=== PATIENT | female | born 1960 | race Two or more races ===

== ENCOUNTER → 2017-10-17 | Outpatient (CLI) | payer OTHER | END | disposition home or self-care (01) | LOC: MAMO-SONO 09:00 | DX: N63.11 Unspecified lump in the right breast, upper outer quadrant (principal); N63.12 Unspecified lump in the right breast, upper inner quadrant; Z12.31 Encounter for screening mammogram for malignant neoplasm of breast; N94.0 Mittelschmerz; R10.2 Pelvic and perineal pain; N94.89 Other specified conditions associated with female genital organs and menstrual cycle; N64.59 Other signs and symptoms in breast; N64.89 Other specified disorders of breast ==

== ENCOUNTER 2018-02-27 09:22 | Outpatient (CLI) | payer OTHER | END 2018-02-27 09:38 | disposition home or self-care (01) | LOC: RAD 09:22 | DX: M19.011 Primary osteoarthritis, right shoulder (principal) ==

== ENCOUNTER 2018-05-07 11:43 | Outpatient (CLI) | payer OTHER | END 2018-05-07 17:00 | disposition home or self-care (01) | LOC: SONOGRAMA 11:43 | DX: M65.811 Other synovitis and tenosynovitis, right shoulder (principal) ==

== ENCOUNTER → 2018-10-30 | Outpatient (CLI) | payer OTHER | END | disposition home or self-care (01) | LOC: RAD 16:13 | DX: M19.90 Unspecified osteoarthritis, unspecified site (principal) ==

== ENCOUNTER 2019-02-26 09:19 | Outpatient (CLI) | payer OTHER | END 2019-02-26 09:30 | disposition home or self-care (01) | LOC: MAMO-SONO 09:19 | DX: Z12.31 Encounter for screening mammogram for malignant neoplasm of breast (principal); Z87.898 Personal history of other specified conditions; N63.10 Unspecified lump in the right breast, unspecified quadrant; N63.20 Unspecified lump in the left breast, unspecified quadrant; N64.59 Other signs and symptoms in breast; N64.89 Other specified disorders of breast ==

== ENCOUNTER 2019-03-15 08:43 | Outpatient (CLI) | payer OTHER | END 2019-03-15 08:53 | disposition home or self-care (01) | LOC: MAMO-SONO 08:43 | DX: N63.10 Unspecified lump in the right breast, unspecified quadrant (principal); N63.20 Unspecified lump in the left breast, unspecified quadrant; N64.59 Other signs and symptoms in breast ==

== ENCOUNTER 2019-12-26 09:39 | Outpatient (CLI) | payer OTHER | END 2019-12-26 09:49 | disposition home or self-care (01) | LOC: RAD 09:39 | PROVIDERS: ATTEND Ophthalmology | DX: M25.011 Hemarthrosis, right shoulder (principal); Z98.41 Cataract extraction status, right eye ==

== ENCOUNTER 2020-03-24 09:53 | Outpatient (CLI) | payer OTHER | END 2020-03-24 10:06 | disposition home or self-care (01) | LOC: MAMO-SONO 09:53 | PROVIDERS: ATTEND Surgery | DX: N60.11 Diffuse cystic mastopathy of right breast (principal); N60.12 Diffuse cystic mastopathy of left breast ==

== ENCOUNTER 2021-12-13 11:08 | Outpatient (CLI) | payer OTHER | END 2021-12-13 13:34 | disposition home or self-care (01) | LOC: MAMO-SONO 11:08 | PROVIDERS: ATTEND Obstetrics & Gynecology | DX: N94.0 Mittelschmerz (principal); R10.2 Pelvic and perineal pain; N94.89 Other specified conditions associated with female genital organs and menstrual cycle; Z12.31 Encounter for screening mammogram for malignant neoplasm of breast; N63.0 Unspecified lump in unspecified breast; N64.59 Other signs and symptoms in breast; N64.9 Disorder of breast, unspecified ==

== ENCOUNTER → 2022-05-02 | Outpatient (CLI) | payer OTHER | END | disposition home or self-care (01) | LOC: RAD 12:48 | PROVIDERS: ATTEND Internal Medicine Cardiovascular Disease | DX: M12.9 Arthropathy, unspecified (principal) ==

== ENCOUNTER 2022-08-19 13:17 | Outpatient (CLI) | payer OTHER | END 2022-08-19 13:23 | disposition home or self-care (01) | LOC: NUCLEAR 13:17 | PROVIDERS: ATTEND Orthopaedic Surgery | DX: M81.0 Age-related osteoporosis without current pathological fracture (principal) ==

== ENCOUNTER 2022-09-12 09:27 | Outpatient (CLI) | payer OTHER | END 2022-09-12 09:28 | disposition home or self-care (01) | LOC: LAB 09:27 | PROVIDERS: ATTEND Orthopaedic Surgery | DX: M85.9 Disorder of bone density and structure, unspecified (principal); E83.42 Hypomagnesemia; E56.1 Deficiency of vitamin K ==

== ENCOUNTER 2023-01-25 10:27 | Outpatient (CLI) | payer OTHER | END 2023-01-25 10:42 | disposition home or self-care (01) | LOC: MAMO-SONO 10:27 | PROVIDERS: ATTEND Obstetrics & Gynecology | DX: N63.0 Unspecified lump in unspecified breast (principal); N64.59 Other signs and symptoms in breast; N64.9 Disorder of breast, unspecified; N94.0 Mittelschmerz; R10.2 Pelvic and perineal pain; N94.89 Other specified conditions associated with female genital organs and menstrual cycle; Z12.31 Encounter for screening mammogram for malignant neoplasm of breast ==

== ENCOUNTER 2023-02-20 05:23 | Day surgery (SDC) | payer OTHER ==
[2023-02-14 10:56] LABS: INR 1.16; PARTIAL THROMBOPLASTIN TIME 27.9 SECONDS (22.0-34.0)
[2023-02-14 12:44] LABS: URINE APPEARANCE Clear; URINE BILIRRUBIN Negative (NEGATIVE); URINE BLOOD Negative; URINE COLOR Yellow; URINE GLUCOSE Negative (NEGATIVE); URINE LEUKOCYTE Negative; URINE NITRATE Negative; URINE PROTEIN Trace (NEGATIVE); URINE UROBILINOGEN 0.2 E.U./dl
[2023-02-14 12:45] LABS: URINE BACTERIA 23.9 uL (0.0-1933); URINE EPITHELIAL CELLS 7.2 uL (0.0-38.8); URINE RBC 8.6 uL (0.0-20.8); URINE WBC 3.2 uL (0.0-23.2)
[~2023-02-20] VITALS: Ht 157.5 cm; Wt 72.1 kg
[~2023-02-20 05:23] MED LIST: GLUMETZA500 MG PO; LOSARTAN-HCTZ1 EAC1 PO
== END 2023-02-20 16:55 | disposition home or self-care (01) ==
LOC: CIR.AMB 05:23
PROVIDERS: ATTEND Obstetrics & Gynecology
DX: N84.1 Polyp of cervix uteri (principal); N84.0 Polyp of corpus uteri; N95.0 Postmenopausal bleeding; I10 Essential (primary) hypertension; E11.9 Type 2 diabetes mellitus without complications; Z20.822 Contact with and (suspected) exposure to COVID-19

== ENCOUNTER 2023-03-23 14:39 | Outpatient (CLI) | payer OTHER | END 2023-03-23 14:50 | disposition home or self-care (01) | LOC: TOM 14:39 | PROVIDERS: ATTEND Internal Medicine Cardiovascular Disease | DX: R13.10 Dysphagia, unspecified (principal); Z91.018 Allergy to other foods ==

== ENCOUNTER 2023-05-18 13:34 | Outpatient (CLI) | payer OTHER | END 2023-05-18 13:42 | disposition home or self-care (01) | LOC: RAD 13:34 | PROVIDERS: ATTEND Internal Medicine Cardiovascular Disease | DX: J44.9 Chronic obstructive pulmonary disease, unspecified (principal); M12.9 Arthropathy, unspecified; M19.90 Unspecified osteoarthritis, unspecified site ==

== ENCOUNTER 2023-05-25 13:34 | Outpatient (CLI) | payer OTHER | END 2023-05-25 13:48 | disposition home or self-care (01) | LOC: SONOGRAMA 13:34 | PROVIDERS: ATTEND Internal Medicine Cardiovascular Disease | DX: M12.9 Arthropathy, unspecified (principal); M19.90 Unspecified osteoarthritis, unspecified site ==

== ENCOUNTER 2023-06-23 11:30 | Outpatient (CLI) | payer OTHER | END 2023-06-23 11:46 | disposition home or self-care (01) | LOC: RAD 11:30 | PROVIDERS: ATTEND Orthopaedic Surgery | DX: S23.420A Sprain of sternoclavicular (joint) (ligament), initial encounter (principal); M79.605 Pain in left leg; Z91.018 Allergy to other foods ==

== ENCOUNTER 2023-06-27 08:17 | Outpatient (CLI) | payer OTHER | END 2023-06-27 08:27 | disposition home or self-care (01) | LOC: MRI 08:17 | PROVIDERS: ATTEND Orthopaedic Surgery | DX: M75.121 Complete rotator cuff tear or rupture of right shoulder, not specified as traumatic (principal) | CPT/HCPCS: 73222 ==

== ENCOUNTER → 2023-06-27 09:07 | Outpatient (CLI) | payer OTHER ==
[2023-06-27 10:06] LABS: CREATININE SERUM 0.74 mg/dL (0.55-1.02)
== END | disposition home or self-care (01) ==
LOC: LAB 09:07
PROVIDERS: ATTEND Orthopaedic Surgery
DX: N19 Unspecified kidney failure (principal)

== ENCOUNTER 2024-02-06 10:44 | Outpatient (CLI) | payer OTHER | END 2024-02-06 10:49 | disposition home or self-care (01) | LOC: MAMO-SONO 10:44 | PROVIDERS: ATTEND Obstetrics & Gynecology | DX: N63.0 Unspecified lump in unspecified breast (principal); N64.59 Other signs and symptoms in breast; N64.9 Disorder of breast, unspecified; N94.0 Mittelschmerz; R10.2 Pelvic and perineal pain; N94.89 Other specified conditions associated with female genital organs and menstrual cycle; Z12.31 Encounter for screening mammogram for malignant neoplasm of breast ==